=== PATIENT | male | born 1935 | race Caucasian/White ===

== ENCOUNTER 2020-04-08 20:58 | Observation (INO) | payer MEDICARE, BC ==
--- NOTE | 2020-04-08 22:14 | EDM.PDOC ---
ED HPI GENERAL MEDICAL PROBLEM - General Chief Complaint: Syncope Stated Complaint: fell, possible broken ribs per Time Seen by Provider: 04/08/20 22:00 Source of Information: Reports: Patient, EMS History Limitations: Reports: No Limitations. Denies: Altered Mental Status, Combative/Threatening, Intoxication - History of Present Illness INITIAL COMMENTS - FREE TEXT/NARRATIVE: Pt states he got up to go to bathroom and was standing up to urinate and states he passed out. Denies CP, SOB, diaphoresis. Pain c/o is to right lateral ribs. Pt has past h/o 5 vessel bypass in 2000 with second heart stint placement in 3 vessels 3 weeks later. Pt also has total prostatectomy secondary to prostate cancer 1999 and has subsequent penile device for bladder control. Pt has pain to his right lower ribs with deep breathing. His only chest pain complaint is with deep inspiration. Onset: Today, Sudden Location: Reports: Chest Quality: Reports: Sharp, Stabbing Severity: Moderate Improves with: Reports: Rest Worsens with: Reports: Movement Associated Symptoms: Reports: No Other Symptoms Right Middle Abdominal Pain Score (Numeric/FACES): 6 - Related Data Allergies Allergy/AdvReac Type Severity Reaction Status Date / Time No Known Allergies Allergy Verified 04/09/20 03:47 Home Meds: Home Meds Gabapentin [Neurontin] 1 each PO BEDTIME 04/08/20 [History] Losartan Potassium 100 mg PO DAILY 04/08/20 [History] Torsemide 20 mg PO DAILY 04/08/20 [History] allopurinoL [Zyloprim] 100 mg PO DAILY 04/08/20 [History] Insulin Glargine,Hum.Rec.Anlog [Basaglar Kwikpen U-100] 30 units SQ DAILY 04/09/20 [History] Rosuvastatin [Crestor] 20 mg PO BEDTIME 04/09/20 [History] amLODIPine [Norvasc] 5 mg PO DAILY #30 tab 04/09/20 [Rx] Past Medical History HEENT History: Reports: Cataract, Glaucoma, Impaired Vision Cardiovascular History: Reports: Bypass, High Cholesterol, ID, Stents Genitourinary History: Reports: Prostate Disorder, Other (See Below) Other Genitourinary History: Bladder Sphincter Endocrine/Metabolic History: Reports: Diabetes, Type II Oncologic (Cancer) History: Reports: Prostate, Other (See Below) Other Oncologic History: Multiple locations of skin CA - Infectious Disease History Infectious Disease History: Reports: Measles - Past Surgical History HEENT Surgical History: Reports: Cataract Surgery, Other (See Below) Cardiovascular Surgical History: Reports: Carotid Endarterectomy, Carotid Stents, Coronary Artery Bypass Dermatological Surgical History: Reports: Plastic Surgical Reconstruction/Repair, Skin Biopsy, Skin Graft Social & Family History - Family History Family Medical History: Noncontributory ED ROS GENERAL - Review of Systems Review Of Systems: See Below Constitutional: Reports: No Symptoms. Denies: Fever, Malaise, Weakness HEENT: Reports: No Symptoms Respiratory: Reports: Hemoptysis. Denies: Shortness of Breath, Pleuritic Chest Pain Cardiovascular: Reports: Palpitations, Syncope. Denies: Chest Pain GI/Abdominal: Reports: No Symptoms Musculoskeletal: Reports: Muscle Pain. Denies: Neck Pain, Shoulder Pain, Arm Pain, Back Pain Skin: Denies: Diaphoresis, Bruising, Change in Color Neurological: Reports: No Symptoms. Denies: Confusion, Dizziness, Headache, Numbness, Trouble Speaking, Difficulty Walking, Weakness Psychiatric: Reports: No Symptoms Hematologic/Lymphatic: Reports: No Symptoms Immunologic: Reports: No Symptoms - Physical Exam Exam: See Below Exam Limited By: No Limitations General Appearance: Alert, WD/WN, No Apparent Distress, Mild Distress Ears: Normal External Exam, Normal Canal, Hearing Grossly Normal, Normal TMs Nose: Normal Inspection Throat/Mouth: Normal Inspection, Normal Lips, Normal Teeth, Normal Gums Head Exam: Atraumatic, Normocephalic. No: Scalp Lacerations, Scalp Swelling Neck: Normal Inspection, Supple, Non-Tender, Full Range of Motion. No: Limited Range of Motion Respiratory/Chest: No Respiratory Distress, Lungs Clear, Normal Breath Sounds Cardiovascular: Normal Peripheral Pulses, Regular Rate, Rhythm, No Edema, No Gallop GI/Abdominal: Normal Bowel Sounds, Soft, Non-Tender, No Organomegaly Neuro Exam (Abbreviated): Alert, Oriented, CN II-XII Intact, Normal Cognition, Normal Gait Back Exam: Normal Inspection, Full Range of Motion Extremities: Normal Inspection, Normal Range of Motion Psychiatric: Normal Affect, Normal Mood Skin Exam: Warm, Dry, Intact, Normal Color, No Rash Course - Vital Signs Last Recorded V/S: Last Vital Signs Temp 97.3 F 04/09/20 08:26 Pulse 56 L 04/09/20 08:26 Resp 20 04/09/20 08:26 BP 160/61 H 04/09/20 08:26 Pulse Ox 99 04/09/20 08:26 - Orders/Labs/Meds Orders: Active Orders 24 hr Category Date Time Status Resuscitation Status Routine Resus Stat 04/09/20 03:46 Ordered Labs: Laboratory Tests 04/08/20 04/08/20 04/09/20 Range/Units 22:15 22:15 03:00 WBC 10.3 D (4.0-11.0) K/uL RBC 3.54 L (4.50-6.50) M/uL Hgb 11.0 L (13.0-18.0) g/dL Hct 32.7 L (40.0-54.0) % MCV 92 (76-96) fL MCH 31.1 (27.0-32.0) pg MCHC 33.6 (31.0-35.0) g/dL RDW 13.3 (11.0-16.0) % Plt Count 208 (150-400) K/uL MPV 10.6 H (6.0-10.0) fL Neut % (Auto) 81.8 H (45.0-70.0) % Lymph % (Auto) 11.0 L (20.0-40.0) % [place] % (Auto) 4.8 (3.0-10.0) % Eos % (Auto) 2.1 (1.0-5.0) % Baso % (Auto) 0.3 (0.0-0.5) % Neut # (Auto) 8.42 H (2.00-7.50) K/uL Lymph # (Auto) 1.13 L (1.50-4.00) K/uL [place] # (Auto) 0.49 (0.20-0.80) K/uL Eos # (Auto) 0.22 (0.04-0.40) K/uL Baso # (Auto) 0.03 (0.02-0.10) K/uL Sodium 136 139 (136-145) mmol/L Potassium 6.3 H* D 5.3 H (3.5-5.1) mmol/L Chloride 101 103 (98-107) mmol/L Carbon Dioxide 22.2 D 23.1 (21.0-32.0) mmol/L Anion Gap 19.1 H 18.2 H (5.0-15.0) mmol/L BUN 113 H* D 107 H* (8-26) mg/dL Creatinine 3.22 H* D 3.28 H* (0.70-1.30) mg/dL Est Cr Clr Drug Dosing TNP 17.00 Estimated GFR (MDRD) 18 L 18 L (>60) MLS/MIN BUN/Creatinine Ratio 35.1 H 32.6 H (6-25) Glucose 230 H D 213 H (74-100) mg/dL Calcium 9.2 9.2 (8.5-10.1) mg/dL Total Bilirubin 0.3 D (0.0-1.0) mg/dL AST 17 (15-37) U/L ALT 20 (12-78) U/L Alkaline Phosphatase 103 (46-116) U/L Troponin I < 0.017 (0.000-0.060) ng/mL Total Protein 8.0 (6.4-8.2) g/dL Albumin 3.7 (3.4-5.0) g/dL Globulin 4.3 H (2.2-4.2) g/dL Albumin/Globulin Ratio 0.9 (0.8-2.0) Meds: Medications Discontinued Medications Generic Name Dose Route Start Last Admin Trade Name Freq PRN Reason Stop Dose Admin Acetaminophen Confirm 04/09/20 08:01 Tylenol Administered 04/09/20 08:02 Dose 650 mg .ROUTE .STK-MED ONE Acetaminophen 650 mg 04/09/20 08:15 04/09/20 08:00 Tylenol PO 650 mg Q6H PRN Administration Abdominal Pain Dextrose/Water 50 ml 04/08/20 23:56 04/09/20 01:11 Dextrose 50% In Water IVPUSH 04/08/20 23:57 50 ml ONETIME ONE Administration Dextrose/Water 50 ml 04/09/20 08:29 04/09/20 09:00 Dextrose 50% In Water IVPUSH 04/09/20 08:30 50 ml ONETIME ONE Administration Sodium Chloride 1,000 mls @ 75 mls/hr 04/08/20 23:45 04/09/20 01:10 Normal Saline IV 75 mls/hr ASDIRECTED GISELE Administration Sodium Chloride 1,000 mls @ 100 mls/hr 04/09/20 09:45 04/09/20 10:49 Normal Saline IV 04/09/20 19:44 100 mls/hr ASDIRECTED GISELE Administration Insulin Aspart 0 unit 04/09/20 11:00 04/09/20 11:50 Novolog SUBCUT 6 units QIDACANDBED GISELE Administration Protocol Insulin Glargine 20 units 04/09/20 20:00 Lantus Solostar SUBCUT BEDTIME GISELE Insulin Human Regular 10 unit 04/08/20 23:57 04/09/20 01:18 Humulin R IV 04/08/20 23:58 10 units ONETIME ONE Administration Insulin Human Regular 10 unit 04/09/20 09:00 04/09/20 09:00 Humulin R IV 04/09/20 09:01 10 units ONETIME ONE Administration Sodium Polystyrene Sulfonate 45 gm 04/08/20 23:59 04/09/20 00:30 Kayexalate PO 04/09/20 00:00 45 gm NOW ONE Administration Sodium Polystyrene Sulfonate Confirm 04/09/20 00:23 04/09/20 01:02 Kayexalate Administered 04/09/20 00:24 Not Given Dose 15 gm .ROUTE .STK-MED ONE - Re-Assessments/Exams Free Text/Narrative Re-Assessment/Exam: 04/08/20 21:57 Pt had a syncopal episode while standing up to urinate. Free Text/Narrative Re-Assessment/Exam: 04/09/20 00:[address] Thurman (e-hospitalist) who advised to admit patient to observation and start: D50 one amp Regular Insulin 10u Kayexalate 45gms NS 75ml/hr Repeat K in 2 hrs Departure - Departure Time of Disposition: 12:45 Disposition: Home, Self-Care 01 Condition: Fair Clinical Impression: Acute hyperkalemia - Discharge Information *PRESCRIPTION DRUG MONITORING PROGRAM REVIEWED*: Not Applicable *COPY OF PRESCRIPTION DRUG MONITORING REPORT IN PATIENT ANNIKA: Not Applicable - My Orders Last 24 Hours: My Active Orders 04/09/20 03:46 Resuscitation Status Routine - Assessment/Plan Last 24 Hours: My Active Orders 04/09/20 03:46 Resuscitation Status Routine
[2020-04-08] MEDS ORDERED: Sodium Chloride 0.9% 1,000 ML IV SCH (23:45)
[2020-04-08] MEDS ORDERED: 50% Dextrose in Water 50 ML Syringe IVPUSH ONE (23:56)
[2020-04-08] MEDS ORDERED: Insulin Regular, Human 100 Units/ML 3 ML Vial IV ONE (23:57)
[2020-04-08] MEDS ORDERED: Sodium Polystyrene Sulfonate 15 GM/60 ML Susp 60 ML Bot PO ONE (23:59)
[2020-04-09] MEDS ORDERED: Sodium Polystyrene Sulfonate 15 GM/60 ML Susp 60 ML Bot ONE (00:23)
[2020-04-09] MEDS ORDERED: Acetaminophen 325 MG Tab ONE (08:01)
[2020-04-09] MEDS ORDERED: Acetaminophen 325 MG Tab PO PRN (08:15)
[2020-04-09] MEDS ORDERED: 50% Dextrose in Water 50 ML Syringe IVPUSH ONE (08:29)
[2020-04-09] MEDS ORDERED: Insulin Regular, Human 100 Units/ML 3 ML Vial IV ONE (09:00)
--- NOTE | 2020-04-09 09:03 | PCM.SN.2 ---
- Free Text/Narrative Note: [facility] Admission Support Note. The [facility] hospitalist was consulted by KEYON Henderson for zainab madrid for admission support and cross coverage services for this patient. [facility] ADMISSION SUPPORT NOTE The [facility] Hospitalist was contacted by KEYON Henedrson with a request for admission support and cross coverage for the patient Anirudh Coombs. Reason for Admission: Syncope, HEIDI, and hyperkalemia. Chief complaint: Black out resulting in a fall. HPI: This 85 y/o man presented to the ER after falling at home after blacking out. He impacted his right thorax in the fall. The ER provider did a trauma assessment, and no injury was found. But, the patient did have an elevated BUN and creatinine level, and hyperkalemia concerning for HEIDI. The patient was admitted to treat the hyperkalenia and to assess and manage HEIDI. The patient may also need to be assessed for syncope. Home Medications: Reviewed in the EMR. See ER encounter note. Pertinent Medical History: Reviewed in the EMR. See admission H&P for more detail. Pertinent Social History: See admission H&P. Exam via interactive video with assistance of bedside nurse was not performed VITAL SIGNS: Reviewed. Pertinent Lab data reviewed in the EMR: EKG: N/A. X-ray: Images and available radiology reports were reviewed in the EMR. ASSESSMENT 1. The initial assessment and plans were reviewed with the admitting ER physician [facility] 2. Syncope. 3. Hyperkalemia. 4. HEIDI likely prerenal azotemia due to dehydration. PLAN/RECOMMEND [facility]. [facility] by performing a video assisted exam of the patient, when requested by the patient's RN or inpatient providers.. 2. [facility] will review the admission orders, and modify these orders or initiate additional orders to benefit the initial inpatient care of the patient. 3. We will invite the patient's RN to recommend additional diagnostic and therapeutic steps which may benefit the patient's admission. 4. [facility] will provide cross coverage care services to assist in the daily care of the patient, and to assist when the patient develops an acute status change. 5. DVT prevention steps for a prolonged hospitalization, or for multiple risk factors for venothromboembolism. Thank you for including [facility] in the patients care. This service is available for further assistance as requested by your care team by calling [phone]. Vernon Spivey MD [facility]
[2020-04-09] MEDS ORDERED: Sodium Chloride 0.9% 1,000 ML IV SCH (09:45)
[2020-04-09] MEDS ORDERED: Insulin Aspart 100 Units/ML 3 ML Pen SUBCUT SCH (11:00)
--- NOTE | 2020-04-09 13:47 | CR ---
DATE OF SERVICE: 04/08/20 CLINICAL DATA: FALL. AP CHEST: Comparison is made to a prior exam dated 01/29/14. The patient is status post median sternotomy. The heart size is normal. There is calcification of the aortic arch. The patient has taken a poor inspiration. 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 The lungs are clear. No pneumothorax. No pleural effusions. No evidence of acute intrathoracic disease. [id number] [facility]
--- NOTE | 2020-04-09 17:11 | PCM.DCSUM1 ---
Discharge Summary - Discharge Data Discharge Date: 04/09/20 Discharge Disposition: Home, Self-Care 01 Condition: Stable - Referral to Home Health Primary Care Physician: PCP None - Patient Instructions Diet: Usual Diet as Tolerated Driving: May Drive Today Showering/Bathing: May Shower Notify Provider of: Fever, Increased Pain, Nausea and/or Vomiting - Discharge Plan *PRESCRIPTION DRUG MONITORING PROGRAM REVIEWED*: Not Applicable *COPY OF PRESCRIPTION DRUG MONITORING REPORT IN PATIENT ANNIKA: Not Applicable Prescriptions/Med Rec: amLODIPine [Norvasc] 5 mg PO DAILY #30 tab Home Medications: Home Meds Gabapentin [Neurontin] 1 each PO BEDTIME 04/08/20 [History] Losartan Potassium 100 mg PO DAILY 04/08/20 [History] Torsemide 20 mg PO DAILY 04/08/20 [History] allopurinoL [Zyloprim] 100 mg PO DAILY 04/08/20 [History] Insulin Glargine,Hum.Rec.Anlog [Basaglar Kwikpen U-100] 30 units SQ DAILY 04/09/20 [History] Rosuvastatin [Crestor] 20 mg PO BEDTIME 04/09/20 [History] amLODIPine [Norvasc] 5 mg PO DAILY #30 tab 04/09/20 [Rx] Other Amb Orders: Consistent Carbohydrate Diet [DIET] Location: None Selected Forms: ED Department Discharge Referrals: PCP,None [Primary Care Provider] - - Discharge Summary/Plan Comment DC Time >30 min.: Yes Discharge Summary/Plan Comment: Counseled on follow up with Nephrology. Discussed rib pain and muscular strain of the area. Counseled on supportive care and conservative management. Discussed elevated potassium and management. We will d/c losartan and start amlodipine and f/u with PCP for BP check and med adjustment as needed in the next week. F/u as directed and counseled on continued close monitoring and f/u. Patient agrees to follow up with his PCP immediately. - Patient Data Vitals - Most Recent: Last Vital Signs Temp 36.3 C 04/09/20 08:26 Pulse 56 L 04/09/20 08:26 Resp 20 04/09/20 08:26 BP 160/61 H 04/09/20 08:26 Pulse Ox 99 04/09/20 08:26 Weight - Most Recent: 92.986 kg I&O - Last 24 hours: Intake & Output 04/09/20 04/09/20 04/09/20 06:59 14:59 22:59 Intake Total 915 Balance 915 Lab Results - Last 24 hrs: Laboratory Results - last 24 hr 04/08/20 04/08/20 04/09/20 Range/Units 22:15 22:15 03:00 WBC 10.3 D (4.0-11.0) K/uL RBC 3.54 L (4.50-6.50) M/uL Hgb 11.0 L (13.0-18.0) g/dL Hct 32.7 L (40.0-54.0) % MCV 92 (76-96) fL MCH 31.1 (27.0-32.0) pg MCHC 33.6 (31.0-35.0) g/dL RDW 13.3 (11.0-16.0) % Plt Count 208 (150-400) K/uL MPV 10.6 H (6.0-10.0) fL Neut % (Auto) 81.8 H (45.0-70.0) % Lymph % (Auto) 11.0 L (20.0-40.0) % [place] % (Auto) 4.8 (3.0-10.0) % Eos % (Auto) 2.1 (1.0-5.0) % Baso % (Auto) 0.3 (0.0-0.5) % Neut # (Auto) 8.42 H (2.00-7.50) K/uL Lymph # (Auto) 1.13 L (1.50-4.00) K/uL [place] # (Auto) 0.49 (0.20-0.80) K/uL Eos # (Auto) 0.22 (0.04-0.40) K/uL Baso # (Auto) 0.03 (0.02-0.10) K/uL Sodium 136 139 (136-145) mmol/L Potassium 6.3 H* D 5.3 H (3.5-5.1) mmol/L Chloride 101 103 (98-107) mmol/L Carbon Dioxide 22.2 D 23.1 (21.0-32.0) mmol/L Anion Gap 19.1 H 18.2 H (5.0-15.0) mmol/L BUN 113 H* D 107 H* (8-26) mg/dL Creatinine 3.22 H* D 3.28 H* (0.70-1.30) mg/dL Est Cr Clr Drug Dosing TNP 17.00 Estimated GFR (MDRD) 18 L 18 L (>60) MLS/MIN BUN/Creatinine Ratio 35.1 H 32.6 H (6-25) Glucose 230 H D 213 H (74-100) mg/dL POC Glucose (74-110) mg/dL Calcium 9.2 9.2 (8.5-10.1) mg/dL Total Bilirubin 0.3 D (0.0-1.0) mg/dL AST 17 (15-37) U/L ALT 20 (12-78) U/L Alkaline Phosphatase 103 (46-116) U/L Troponin I < 0.017 (0.000-0.060) ng/mL Total Protein 8.0 (6.4-8.2) g/dL Albumin 3.7 (3.4-5.0) g/dL Globulin 4.3 H (2.2-4.2) g/dL Albumin/Globulin Ratio 0.9 (0.8-2.0) 04/09/20 04/09/20 Range/Units 10:00 10:51 WBC (4.0-11.0) K/uL RBC (4.50-6.50) M/uL Hgb (13.0-18.0) g/dL Hct (40.0-54.0) % MCV (76-96) fL MCH (27.0-32.0) pg MCHC (31.0-35.0) g/dL RDW (11.0-16.0) % Plt Count (150-400) K/uL MPV (6.0-10.0) fL Neut % (Auto) (45.0-70.0) % Lymph % (Auto) (20.0-40.0) % [place] % (Auto) (3.0-10.0) % Eos % (Auto) (1.0-5.0) % Baso % (Auto) (0.0-0.5) % Neut # (Auto) (2.00-7.50) K/uL Lymph # (Auto) (1.50-4.00) K/uL [place] # (Auto) (0.20-0.80) K/uL Eos # (Auto) (0.04-0.40) K/uL Baso # (Auto) (0.02-0.10) K/uL Sodium (136-145) mmol/L Potassium 5.0 (3.5-5.1) mmol/L Chloride (98-107) mmol/L Carbon Dioxide (21.0-32.0) mmol/L Anion Gap (5.0-15.0) mmol/L BUN (8-26) mg/dL Creatinine (0.70-1.30) mg/dL Est Cr Clr Drug Dosing Estimated GFR (MDRD) (>60) MLS/MIN BUN/Creatinine Ratio (6-25) Glucose (74-100) mg/dL POC Glucose 297 H (74-110) mg/dL Calcium (8.5-10.1) mg/dL Total Bilirubin (0.0-1.0) mg/dL AST (15-37) U/L ALT (12-78) U/L Alkaline Phosphatase (46-116) U/L Troponin I (0.000-0.060) ng/mL Total Protein (6.4-8.2) g/dL Albumin (3.4-5.0) g/dL Globulin (2.2-4.2) g/dL Albumin/Globulin Ratio (0.8-2.0) Med Orders - Current: Current Medications Discontinued Medications Acetaminophen (Tylenol) Confirm Administered Dose 650 mg .ROUTE .STK-MED ONE Stop: 04/09/20 08:02 Acetaminophen (Tylenol) 650 mg PO Q6H PRN PRN Reason: Abdominal Pain Last Admin: 04/09/20 08:00 Dose: 650 mg Documented by: Dextrose/Water (Dextrose 50% In Water) 50 ml IVPUSH ONETIME ONE Stop: 04/08/20 23:57 Last Admin: 04/09/20 01:11 Dose: 50 ml Documented by: Dextrose/Water (Dextrose 50% In Water) 50 ml IVPUSH ONETIME ONE Stop: 04/09/20 08:30 Last Admin: 04/09/20 09:00 Dose: 50 ml Documented by: Sodium Chloride (Normal Saline) 1,000 mls @ 75 mls/hr IV ASDIRECTED [facility] Last Admin: 04/09/20 01:10 Dose: 75 mls/hr Documented by: Sodium Chloride (Normal Saline) 1,000 mls @ 100 mls/hr IV ASDIRECTED [facility] Stop: 04/09/20 19:44 Last Admin: 04/09/20 10:49 Dose: 100 mls/hr Documented by: Insulin Aspart (Novolog) 0 unit SUBCUT QIDACANDBED [facility]; Protocol Last Admin: 04/09/20 11:50 Dose: 6 units Documented by: Insulin Glargine (Lantus Solostar) 20 units SUBCUT BEDTIME [facility] Insulin Human Regular (Humulin R) 10 unit IV ONETIME ONE Stop: 04/08/20 23:58 Last Admin: 04/09/20 01:18 Dose: 10 units Documented by: Insulin Human Regular (Humulin R) 10 unit IV ONETIME ONE Stop: 04/09/20 09:01 Last Admin: 04/09/20 09:00 Dose: 10 units Documented by: Sodium Polystyrene Sulfonate (Kayexalate) 45 gm PO NOW ONE Stop: 04/09/20 00:00 Last Admin: 04/09/20 00:30 Dose: 45 gm Documented by: Sodium Polystyrene Sulfonate (Kayexalate) Confirm Administered Dose 15 gm .ROUTE .STK-MED ONE Stop: 04/09/20 00:24 Last Admin: 04/09/20 01:02 Dose: Not Given Documented by:
[2020-04-09] MEDS ORDERED: Insulin Glargine,Human Rec. Analog 100 Units/ML 3 ML Pen SUBCUT SCH (20:00)
== END 2020-04-09 12:45 | disposition home or self-care (01) ==
LOC: LB.ED 20:58 → UNDOADMOB 04-09 → LB.MS 04-09
PROVIDERS: ADMIT Physician Assistant Surgical; ATTEND Physician Assistant Surgical
DX: R55 Syncope and collapse (principal); E87.5 Hyperkalemia; R07.89 Other chest pain; N17.9 Acute kidney failure, unspecified; E78.00 Pure hypercholesterolemia, unspecified; E11.9 Type 2 diabetes mellitus without complications; Z85.46 Personal history of malignant neoplasm of prostate; Z90.79 Acquired absence of other genital organ(s); Z79.4 Long term (current) use of insulin; Z95.5 Presence of coronary angioplasty implant and graft; Z79.899 Other long term (current) drug therapy
CPT/HCPCS: 36415; 71045; 80048; 80053; 82962; 84132; 84484; 85025; 87070; 93005; 96374; 99285-25; A0425; A0429; A9270-GY; J1815-GY; J7030